=== PATIENT | female | born 1985 | race African-American/Black ===

== ENCOUNTER 2017-03-19 20:16 | Emergency (ER) | payer OTHER ==
[2017-03-19 20:40] VITALS: BP 152/97; PULSE 108; TEMP 101.4; BMI 33.5
[2017-03-19] MEDS ORDERED: IBUPROFEN 600 MG TABLET (FP) PO ONE ×2 (21:15→21:39)
--- NOTE | 2017-03-19 22:54 | PDOC ---
History of Present Illness - History of Present Illness Initial Comments: 03/19/17 22:05 CHIEF COMPLAINT: flu symptoms HISTORY OF PRESENT ILLNESS: 31 yo F presents to [facility] with fever, cough, runny nose, body aches, and headache x 3 days. Patient reports feeling fatigued and that "my eyes have felt heavy for the last 3 days." Patient reports nausea but denies any vomiting or diarrhea. She states she has had decreased appetite "but I'm drinking lots of water" and her urination has been normal. PAST MEDICAL HISTORY: Denies past medical history FAMILY HISTORY: Denies SOCIAL HISTORY: Denies tobacco, alcohol, illicit drug use. SURGICAL HISTORY: Denies ALLERGIES: No known drug allergies REVIEW OF SYSTEMS General/Constitutional: Fever, chills, fatigue, weakness. HEENT: Sore throat, runny nose, congestion. Denies change in vision. Denies ear pain or discharge Cardiovascular: Chest pain. Respiratory: Cough. Denies wheezing, or hemoptysis. Gastrointestinal: Nausea. Denies vomiting, diarrhea or constipation. Denies rectal bleeding. Genitourinary: Denies dysuria, frequency, or change in urination. Musculoskeletal: Body aches. Skin and breasts: Denies rash or easy bruising. Neurologic: Headache, dizziness. Vertigo, loss of consciousness, or loss of sensation. PHYSICAL EXAM General Appearance: Uncomfortable-appearing, diaphoretic. HEENT: EOMI, PERRLA, normal ENT inspection, normal voice, TMs normal, pharynx normal. No conjunctival pallor. No photophobia, scleral icterus. Neck: Supple. Trachea midline. No tenderness, rigidity, carotid bruit, stridor , lymphadenopathy, or thyromegaly. Respiratory/Chest: Lungs CTAB. Cardiovascular: RRR. S1, S2. Gastrointestinal/Abdominal: Normal bowel sounds. Abdomen soft, non-distended. No tenderness or rebound tenderness. No organomegaly, pulsatile mass, guarding , hernia, hepatomegaly, splenomegaly. Musculoskeletal/Extremities: Normal inspection. FROM of all extremities, normal capillary refill. Pelvis Stable. No CVA tenderness. No tenderness to extremities, pedal edema, swelling, erythema or deformity. Integumentary: Appropriate color, dry, warm. No cyanosis, erythema, jaundice or rash Neurologic: team lead II-XII intact. Fully oriented, alert. Appropriate mood/affect. Motor strength 5/5. No appreciable EOM palsy, facial droop or sensory deficit. <Dafne Berman - Last Filed: 03/19/17 22:05> <Cassandra Rosenberg - Last Filed: 03/20/17 16:41> - General Chief Complaint: Cold Symptoms Stated Complaint: FEVER Time Seen by Provider: 03/19/17 21:15 Past History - Past Medical History HTN: Yes (pre eclampsia) - Immunization History Immunization Up to Date: Yes - Suicide/Smoking/Psychosocial Hx Smoking Status: No Smoking History: Never smoked Number of Cigarettes Smoked Daily: 0 Cigars Per Day: 0 Hx Alcohol Use: No <Dafne Berman - Last Filed: 03/19/17 22:05> <Cassandra Rosenberg - Last Filed: 03/20/17 16:41> - Past Medical History Allergies/Adverse Reactions: Allergies Allergy/AdvReac Type Severity Reaction Status Date / Time No Known Allergies Allergy Verified 03/19/17 20:40 Home Medications: Ambulatory Orders Metformin HCl [Glucophage] 1,000 mg PO BID 10/04/12 Labetalol HCl [Normodyne -] 200 mg PO DAILY 08/03/13 Acetaminophen [Tylenol Extra Strength] 500 mg PO QID PRN #30 tablet 08/04/13 Ibuprofen [Motrin -] 800 mg PO TID #12 tablet 08/04/13 *Physical Exam - Vital Signs Last Vital Signs Temp Pulse Resp BP Pulse Ox 101.4 F H 108 H 20 152/97 99 03/19/17 20:37 03/19/17 20:37 03/19/17 20:37 03/19/17 20:37 03/19/17 20:37 <Dafne Berman - Last Filed: 03/19/17 22:05> - Vital Signs Last Vital Signs Temp Pulse Resp BP Pulse Ox 101.4 F H 108 H 20 152/97 99 03/19/17 20:37 03/19/17 20:37 03/19/17 20:37 03/19/17 20:37 03/19/17 20:37 <Cassandra Rosenberg - Last Filed: 03/20/17 16:41> ED Treatment Course - Medications Given in the ED: ED Medications Discontinued Medications Generic Name Dose Route Start Last Admin Trade Name Freq PRN Reason Stop Dose Admin Ibuprofen 600 mg 03/19/17 21:15 03/19/17 21:40 Motrin - PO 03/19/17 21:16 600 mg ONCE ONE Administration <Dafne Berman - Last Filed: 03/19/17 22:05> - LABORATORY CBC & Chemistry Diagram: 03/19/17 23:33 03/19/17 23:33 - ADDITIONAL ORDERS Additional order review: Laboratory Results 03/19/17 03/19/17 23:42 23:33 Sodium 135 L Potassium 3.4 L Chloride 100 Carbon Dioxide 25 Anion Gap 10 BUN 11 Creatinine 0.7 Creat Clearance w eGFR > 60 Random Glucose 254 H Calcium 9.0 Total Bilirubin 0.6 D AST 30 ALT 47 Alkaline Phosphatase 84 Total Protein 7.7 Albumin 3.9 Serum , Qual Negative 03/19/17 23:30 Group A Strep Rapid Antigen - Final Throat 03/19/17 10:03 Influenza Types A,B Antigen (RONI) - Final Nasopharyngeal Swab - Final 03/19/17 23:33 RBC 5.10 MCV 77.7 L MCHC 34.7 RDW 13.7 D MPV 8.6 Neutrophils % 43.2 Lymphocytes % 45.9 H Monocytes % 9.9 Eosinophils % 0.1 D Basophils % 0.9 - Medications Given in the ED: ED Medications Discontinued Medications Generic Name Dose Route Start Last Admin Trade Name Agus PRN Reason Stop Dose Admin Ibuprofen 600 mg 03/19/17 21:15 03/19/17 21:40 Motrin - PO 03/19/17 21:16 600 mg ONCE ONE Administration Sodium Chloride 1,000 ml 03/19/17 22:57 03/19/17 23:50 Normal Saline - IV 03/19/17 22:58 1,000 ml ONCE ONE Administration <Cassandra Rosenberg - Last Filed: 03/20/17 16:41> Medical Decision Making - Medical Decision Making 03/19/17 22:54 31 yo F presents to [facility] with fever, cough, runny nose, body aches, and headache x 3 days. -flu swab Flu negative. Patient is agitated that she "did not get a blood test for anything, and I feel terrible." Discussed with patient extensively that viruses can cause all of her symptoms and that she can be treated symptomatically on an outpatient basis. Patient persistently requests blood tests "to make sure everything is ok " and now is complaining that she has chest pain. -EKG, CXR -CBC, CMP -IVF Patient will be transferred to main ED for lab f/u. <Dafne Berman - Last Filed: 03/19/17 22:05> *DC/Admit/Observation/Transfer <Dafne Berman - Last Filed: 03/19/17 22:05> <ChetCassandraethan Loco - Last Filed: 03/20/17 16:41> Diagnosis at time of Disposition: Fever, Sore throat - Discharge Dispostion Disposition: HOME Condition at time of disposition: Stable - Referrals Referrals: Davi Wilson MD [Primary Care Provider] - - Patient Instructions Printed Discharge Instructions: DI for Strep Throat, DI for Viral Upper Respiratory Infection -- Adult, DI for Fever (Symptom) -- Adult - Post Discharge Activity Forms/Work/School Notes: Back to Work
[2017-03-19] MEDS ORDERED: SODIUM CHLORIDE 0.9% 1000 ML INFUS.BAG IV ONE (22:57)
[2017-03-19 23:50] LABS: BASO % 0.9 % (0-2.0); EOS % 0.1 % (0-4.5); HEMATOCRIT 39.6 % (32.4-45.2); HEMOGLOBIN 13.7 GM/dL (10.7-15.3); LYMPH % 45.9 % (8-40); MCH 26.9 pg (25.7-33.7); MCHC 34.7 g/dl (32.0-36.0); MEAN CELL VOLUME 77.7 fl (80-96); MEAN PLT VOLUME 8.6 fl (7.5-11.1); MONO % 9.9 % (3.8-10.2); NEUT % 43.2 % (42.8-82.8); PLATELET COUNT 250 K/MM3 (134-434); RDW 13.7 % (11.6-15.6); WHITE BLOOD COUNT 3.9 K/mm3 (4.0-10.0)
[2017-03-20 01:34] LABS: ALBUMIN 3.9 g/dl (3.4-5.0); ALK PHOS 84 U/L (45-117); ANION GAP 10 (8-16); BILIRUBIN,TOTAL 0.6 mg/dL (0.2-1.0); BLOOD UREA NITROGEN 11 mg/dL (7-18); CHLORIDE 100 mmol/L (98-107); CO2 25 mmol/L (21-32); CREATININE 0.7 mg/dL (0.55-1.02); GLUCOSE,RANDOM 254 mg/dL (74-106); POTASSIUM 3.4 mmol/L (3.5-5.1); SGOT/AST 30 U/L (15-37); SGPT/ALT 47 U/L (12-78); SODIUM 135 mmol/L (136-145); TOT PROT 7.7 g/dl (6.4-8.2)
--- NOTE | 2017-03-20 02:03 | PDOC ---
*Physical Exam - Vital Signs Last Vital Signs Temp Pulse Resp BP Pulse Ox 101.4 F H 108 H 20 152/97 99 03/19/17 20:37 03/19/17 20:37 03/19/17 20:37 03/19/17 20:37 03/19/17 20:37 ED Treatment Course - LABORATORY CBC & Chemistry Diagram: 03/19/17 23:33 03/19/17 23:33 - ADDITIONAL ORDERS Additional order review: Laboratory Results 03/19/17 03/19/17 23:42 23:33 Sodium 135 L Potassium 3.4 L Chloride 100 Carbon Dioxide 25 Anion Gap 10 BUN 11 Creatinine 0.7 Creat Clearance w eGFR > 60 Random Glucose 254 H Calcium 9.0 Total Bilirubin 0.6 D AST 30 ALT 47 Alkaline Phosphatase 84 Total Protein 7.7 Albumin 3.9 Serum , Qual Negative 03/19/17 23:30 Group A Strep Rapid Antigen - Final Throat 03/19/17 10:03 Influenza Types A,B Antigen (RONI) - Final Nasopharyngeal Swab - Final 03/19/17 23:33 RBC 5.10 MCV 77.7 L MCHC 34.7 RDW 13.7 D MPV 8.6 Neutrophils % 43.2 Lymphocytes % 45.9 H Monocytes % 9.9 Eosinophils % 0.1 D Basophils % 0.9 - Medications Given in the ED: ED Medications Discontinued Medications Generic Name Dose Route Start Last Admin Trade Name Freq PRN Reason Stop Dose Admin Ibuprofen 600 mg 03/19/17 21:15 03/19/17 21:40 Motrin - PO 03/19/17 21:16 600 mg ONCE ONE Administration Sodium Chloride 1,000 ml 03/19/17 22:57 03/19/17 23:50 Normal Saline - IV 03/19/17 22:58 1,000 ml ONCE ONE Administration Medical Decision Making - Medical Decision Making 03/20/17 02:05 31-year-old female who has had sore throat, fever and chills for several days, was seen in fast track and had a negative flu swab. However, she felt that she should have bloodwork done because she felt very badly and fell off for workup had not been done. CBC shows no elevation in white count. Chemistries do show an elevated glucose, but she is a diabetic. Throat culture was negative for strep pharyngitis. Chest x-ray did not show any infiltrates IMP fever,cough,sore throat URI *DC/Admit/Observation/Transfer Diagnosis at time of Disposition: Sore throat Fever Qualifiers: Fever type: unspecified Qualified Code(s): R50.9 - Fever, unspecified - Discharge Dispostion Disposition: HOME Condition at time of disposition: Stable - Referrals Referrals: Davi Wilson MD [Primary Care Provider] - - Patient Instructions Printed Discharge Instructions: DI for Strep Throat, DI for Viral Upper Respiratory Infection -- Adult, DI for Fever (Symptom) -- Adult - Post Discharge Activity
--- NOTE | 2017-03-20 12:43 | EKG ---
Test Reason : Blood Pressure : / mmHG Vent. Rate : 089 BPM Atrial Rate : 089 BPM P-R Int : 186 ms QRS Dur : 094 ms QT Int : 396 ms P-R-T Axes : 042 041 035 degrees QTc Int : 481 ms NORMAL SINUS RHYTHM NONSPECIFIC T WAVE ABNORMALITY ABNORMAL ECG NO PREVIOUS ECGS AVAILABLE Confirmed by ASAD CUNHA MD ([id number]) on 03/20/2017 12:43:01 PM Referred By: Confirmed By:ASAD CUNHA MD
== END 2017-03-20 02:09 | disposition home or self-care (01) ==
LOC: JERFT 20:16 → JER 20:16
DX: J02.9 Acute pharyngitis, unspecified (principal)
CPT/HCPCS: 36415; 71046-TC-FY; 80053; 84703; 85025; 87070; 87077; 87430; 87804; 93005; 93010; 99281-25

== ENCOUNTER 2018-03-31 18:13 | Observation (INO) | payer OTHER ==
[2018-03-31] MEDS ORDERED: ACETAMINOPHEN 1000 MG/100 ML VIAL (NON FORMULARY) IVPB ONE (19:19)
[2018-03-31] MEDS ORDERED: ONDANSETRON 4 MG/2 ML VIAL IVPUSH ONE (19:19)
[2018-03-31] MEDS ORDERED: SODIUM CHLORIDE 1,000 ML IV STA (19:19)
[2018-03-31] MEDS ORDERED: ONDANSETRON 4 MG/2 ML VIAL ONE (19:54)
[2018-03-31] MEDS ORDERED: ACETAMINOPHEN INJECTION 100 ML IVPB ONE (19:54)
--- NOTE | 2018-03-31 20:19 | PDOC ---
History of Present Illness <Ashley Matthews - Last Filed: 03/31/18 22:39> - General History Source: Patient Exam Limitations: No Limitations - History of Present Illness Initial Comments: 03/31/18 20:09 Patient is a 32F with history of DM and HTN here today complaining of vomiting and generalized weakness that started yesterday. Endorses an associated substernal chest pain described as a pressure with associated shortness of breath. Denies fevers, chills. Denies leg swelling, history of blood clots, recent travel. Patient has control device in L arm. Denies dysuria, abdominal pain. Endorses that her kids have similar illness, but no diffuse weakness. Denies syncope or LOC. <Chet Rick - Last Filed: 03/31/18 22:58> - General Chief Complaint: Nausea/Vomiting Stated Complaint: CHEST PAIN Time Seen by Provider: 03/31/18 19:12 Past History <Ashley Matthews - Last Filed: 03/31/18 22:39> - Past Medical History COPD: No Diabetes: Yes HTN: Yes (pre eclampsia) - Immunization History Immunization Up to Date: Yes - Suicide/Smoking/Psychosocial Hx Smoking Status: No Smoking History: Never smoked Number of Cigarettes Smoked Daily: 0 Cigars Per Day: 0 Hx Alcohol Use: No <Chet Rick - Last Filed: 03/31/18 22:58> - Past Medical History Allergies/Adverse Reactions: Allergies Allergy/AdvReac Type Severity Reaction Status Date / Time No Known Allergies Allergy Verified 03/31/18 18:25 Home Medications: Ambulatory Orders metFORMIN HCL [Glucophage] 1,000 mg PO BID 10/04/12 Labetalol HCl [Normodyne -] 200 mg PO DAILY 08/03/13 Acetaminophen [Tylenol Extra Strength] 500 mg PO QID PRN #30 tablet 08/04/13 Ibuprofen [Motrin -] 800 mg PO TID #12 tablet 08/04/13 Review of Systems - Review of Systems Comments:: 03/31/18 20:19 GENERAL/CONSTITUTIONAL: No fever or chills. No weakness. HEAD, EYES, EARS, NOSE AND THROAT: No change in vision. No sore throat. CARDIOVASCULAR: +chest pain +shortness of breath RESPIRATORY: No cough, wheezing, or hemoptysis. GASTROINTESTINAL: +nausea, +vomiting, no diarrhea or constipation. GENITOURINARY: No dysuria, frequency, or change in urination. MUSCULOSKELETAL: No joint or muscle swelling or pain. No neck or back pain. SKIN: No rash NEUROLOGIC: No headache, vertigo, loss of consciousness, or change in strength/ sensation. ENDOCRINE: No increased thirst. No abnormal weight change HEMATOLOGIC/LYMPHATIC: No anemia, easy bleeding, or history of blood clots. ALLERGIC/IMMUNOLOGIC: No hives or skin allergy. <Chet Rick - Last Filed: 03/31/18 22:58> *Physical Exam - Vital Signs Last Vital Signs Temp Pulse Resp BP Pulse Ox 98.8 F 95 H 18 122/81 99 03/31/18 18:17 03/31/18 18:17 03/31/18 18:17 03/31/18 18:17 03/31/18 18:17 <Ashley Matthews - Last Filed: 03/31/18 22:39> - Vital Signs Last Vital Signs Temp Pulse Resp BP Pulse Ox 98.8 F 95 H 18 122/81 99 03/31/18 18:17 03/31/18 18:17 03/31/18 18:17 03/31/18 18:17 03/31/18 18:17 - Physical Exam Comments: 03/31/18 20:19 GENERAL: Awake, alert, and fully oriented, in no acute distress HEAD: No signs of trauma, normocephalic, atraumatic EYES: PERRLA, EOMI, sclera anicteric, conjunctiva clear ENT: Auricles normal inspection, hearing grossly normal, nares patent, oropharynx clear without exudates. Moist mucosa NECK: Normal ROM, supple, no lymphadenopathy, JVD, or masses LUNGS: No distress, speaks full sentences, clear to auscultation bilaterally HEART: Regular rate and rhythm, normal S1 and S2, no murmurs, rubs or gallops, peripheral pulses normal and equal bilaterally. ABDOMEN: Soft, nontender, normoactive bowel sounds. No guarding, no rebound. No masses EXTREMITIES: Normal inspection, Normal range of motion, no edema. No clubbing or cyanosis. NEUROLOGICAL: Cranial nerves II through XII grossly intact. Normal speech, normal gait, no focal sensorimotor deficits SKIN: Warm, Dry, normal turgor, no rashes or lesions noted. <Chet Rick - Last Filed: 03/31/18 22:58> Moderate Sedation - Procedure Monitoring Vital Signs: Procedure Monitoring Vital Signs Temperature 98.8 F 03/31/18 18:17 Pulse Rate 95 H 03/31/18 18:17 Respiratory Rate 18 03/31/18 18:17 Blood Pressure 122/81 03/31/18 18:17 O2 Sat by Pulse Oximetry (%) 99 03/31/18 18:17 <Ashley Matthews - Last Filed: 03/31/18 22:39> - Procedure Monitoring Vital Signs: Procedure Monitoring Vital Signs Temperature 98.8 F 03/31/18 18:17 Pulse Rate 95 H 03/31/18 18:17 Respiratory Rate 18 03/31/18 18:17 Blood Pressure 122/81 03/31/18 18:17 O2 Sat by Pulse Oximetry (%) 99 03/31/18 18:17 <Chte Rick - Last Filed: 03/31/18 22:58> ED Treatment Course - LABORATORY CBC & Chemistry Diagram: 03/31/18 20:17 03/31/18 20:17 - ADDITIONAL ORDERS Additional order review: Laboratory Results 03/31/18 03/31/18 03/31/18 22:36 21:30 20:17 Sodium 141 Potassium 3.7 Chloride 107 Carbon Dioxide 25 Anion Gap 8 BUN 9 Creatinine 0.7 Creat Clearance w eGFR > 60 POC Glucometer 106 Random Glucose 105 Calcium 8.5 Total Bilirubin 0.4 AST 13 L ALT 26 Alkaline Phosphatase 60 Creatine Kinase 82 Troponin I < 0.02 Total Protein 7.3 Albumin 3.8 Lipase 505 H Urine Color Ltyellow Urine Appearance Clear Urine pH 5.0 Ur Specific [place] 1.014 Urine Protein Negative Urine Glucose (UA) Negative Urine Ketones Negative Urine Blood Negative Urine Nitrite Negative Urine Bilirubin Negative Urine Urobilinogen Negative Ur Leukocyte Esterase Negative Urine HCG, Qual Negative 03/31/18 03/31/18 22:36 20:17 RBC 4.67 MCV 79.6 L MCHC 36.0 RDW 13.5 MPV 8.2 Neutrophils % 39.4 L Lymphocytes % 49.6 H Monocytes % 8.1 Eosinophils % 2.0 D Basophils % 0.9 POC Glucometer 106 - RADIOLOGY Radiology Studies Ordered: Category Date Time Status ABDOMEN US -LIMITED [US] Stat Ultrasound 03/31/18 22:39 Ordered - Medications Given in the ED: ED Medications Discontinued Medications Generic Name Dose Route Start Last Admin Trade Name Agus PRN Reason Stop Dose Admin Acetaminophen 1,000 mg 03/31/18 19:19 03/31/18 20:19 Ofirmev Injection - IVPB 03/31/18 19:20 1,000 mg ONCE ONE Administration Sodium Chloride 1,000 mls @ 1,000 mls/hr 03/31/18 19:19 03/31/18 20:19 Normal Saline - IV 03/31/18 20:18 1,000 mls/hr ASDIR STA Administration Ondansetron HCl 4 mg 03/31/18 19:19 03/31/18 20:20 Zofran Injection IVPUSH 03/31/18 19:20 4 mg ONCE ONE Administration <Ashley Matthews - Last Filed: 03/31/18 22:39> - LABORATORY CBC & Chemistry Diagram: 03/31/18 20:17 03/31/18 20:17 <Chet Rick - Last Filed: 03/31/18 22:58> Medical Decision Making - Medical Decision Making 03/31/18 20:19 Patient is 32F here today with vomiting, chest pain, shortness of breath and weakness. Vitals normal and stable. Believe patient is likely dehydrated 2/2 uncontrolled DM (patient is not taking medications, not seeing PCP) and viral illness. DDx also includes, but is not limited to: ACS, arrhythmia, pneumonia. Will treat with fluids, tylenol, zofran. Will evaluate with cardiac labs, ekg, cxr. EKG shows normal sinus rhythm with normal rate. No st elevations/depressions. Normal axis. Normal intervals. No significant t wave abnormalities. 03/31/18 22:58 CBC normal. CMP reassuring. Lipase mildly elevated. US ordered. <Chet Rick - Last Filed: 03/31/18 22:58> *DC/Admit/Observation/Transfer - Discharge Dispostion Decision to Admit order: Yes <Ashley Matthews - Last Filed: 03/31/18 22:39> <Chet Rick - Last Filed: 03/31/18 22:58> Diagnosis at time of Disposition: Pancreatitis - Discharge Dispostion Condition at time of disposition: Guarded - Referrals Referrals: Davi Wilson MD [Primary Care Provider] - - Patient Instructions - Post Discharge Activity
[2018-03-31 20:24] LABS: BASO % 0.9 % (0-2.0); HEMATOCRIT 37.2 % (32.4-45.2); HEMOGLOBIN 13.4 GM/dL (10.7-15.3); LYMPH % 49.6 % (8-40); MCH 28.7 pg (25.7-33.7); MEAN CELL VOLUME 79.6 fl (80-96); MEAN PLT VOLUME 8.2 fl (7.5-11.1); MONO % 8.1 % (3.8-10.2); NEUT % 39.4 % (42.8-82.8); PLATELET COUNT 270 K/MM3 (134-434); RBC 4.67 M/mm3 (3.60-5.2); RDW 13.5 % (11.6-15.6); WHITE BLOOD COUNT 4.9 K/mm3 (4.0-10.0)
[2018-03-31 21:34] LABS: ALBUMIN 3.8 g/dl (3.4-5.0); ALK PHOS 60 U/L (45-117); ANION GAP 8 MMOL/L (8-16); BILIRUBIN,TOTAL 0.4 mg/dL (0.2-1); BLOOD UREA NITROGEN 9 mg/dL (7-18); CALCIUM 8.5 mg/dL (8.5-10.1); CHLORIDE 107 mmol/L (98-107); CO2 25 mmol/L (21-32); CREATININE 0.7 mg/dL (0.55-1.3); GLUCOSE,RANDOM 105 mg/dL (74-106); LIPASE 505 U/L (73-393); POTASSIUM 3.7 mmol/L (3.5-5.1); SGOT/AST 13 U/L (15-37); SGPT/ALT 26 U/L (13-61); SODIUM 141 mmol/L (136-145); TOT PROT 7.3 g/dl (6.4-8.2)
[2018-03-31 21:41] LABS: HCG,QUALITATIVE URINE Negative
[2018-03-31 21:44] LABS: URINE APPEARANCE CLEAR; URINE BILIRUBIN NEGATIVE (<2.0 mg/dL); URINE COLOR LTYELLOW; URINE GLUCOSE (UA) NEGATIVE (NEGATIVE); URINE KETONE NEGATIVE (NEGATIVE); URINE LEUK ESTERASE NEGATIVE (NEGATIVE); URINE NITRITE NEGATIVE (NEGATIVE); URINE PROTEIN NEGATIVE (NEGATIVE); URINE UROBILINOGEN NEGATIVE mg/dL (0.2-1.0)
[2018-03-31] MEDS ORDERED: ONDANSETRON 4 MG/2 ML VIAL IVPUSH PRN (23:22)
--- NOTE | 2018-03-31 23:32 | HP ---
CHIEF COMPLAINT: nausea/vomiting PCP: Steve HISTORY OF PRESENT ILLNESS: Patient is a 32 yo F w/ PMHx DM, HTN, pre-eclampsia, p/w nausea, numerous episodes of "very yellow" vomiting, and diarrhea a/w generalized weakness, substernal CP, and SOB since yesterday. No f/c, no other acute complaints. States that her children have similar syndrome without component of weakness. Hemodynamically stable on presentation. Labs significant for lipase 505. Urine hCG negative, LMP 1 week ago. Treated in ED w/ NS bolus, Jemal Lorenzo. ER course was notable for: (1) Lipase 505 (2) troponin negative, EKG NSR (3) no leukocytosis Recent Travel: PAST MEDICAL HISTORY: As per HPI PAST SURGICAL HISTORY: Social History: Smoking: Alcohol: Drugs: Family History: Allergies No Known Allergies Allergy (Verified 03/31/18 18:25) HOME MEDICATIONS: Home Medications Medication Instructions Recorded metFORMIN HCL [Glucophage] 1,000 mg PO BID 10/04/12 Labetalol HCl [Normodyne -] 200 mg PO DAILY 08/03/13 Acetaminophen [Tylenol Extra 500 mg PO QID PRN #30 tablet 08/04/13 Strength] Ibuprofen [Motrin -] 800 mg PO TID #12 tablet 08/04/13 REVIEW OF SYSTEMS As per HPI PHYSICAL EXAMINATION Vital Signs - 24 hr 03/31/18 18:17 Temperature 98.8 F Pulse Rate 95 H Respiratory 18 Rate Blood Pressure 122/81 O2 Sat by Pulse 99 Oximetry (%) GENERAL: A&Ox3, NAD HEENT: NC/AT, PERRLA, EOMI, MMM NECK: Normal range of motion, supple without lymphadenopathy, JVD, or masses. LUNGS: Breath sounds equal, clear to auscultation bilaterally. No wheezes, and no crackles. No accessory muscle use. HEART: Regular rate and rhythm, normal S1 and S2 without murmur, rub or gallop. ABDOMEN: +bs, soft, obese, mild epigastric tenderness MUSCULOSKELETAL: Normal range of motion at all joints. No bony deformities or tenderness. No CVA tenderness. UPPER EXTREMITIES: 2+ pulses, warm, well-perfused. No cyanosis. No clubbing. No peripheral edema. LOWER EXTREMITIES: 2+ pulses, warm, well-perfused. No calf tenderness. No peripheral edema. NEUROLOGICAL: pr specialist, motor, sensory systems w/o focal deficit PSYCHIATRIC: Cooperative. Good eye contact. Appropriate mood and affect. SKIN: Warm, dry, normal turgor, no rashes or lesions noted, normal capillary refill. Laboratory Results - last 24 hr 03/31/18 03/31/18 03/31/18 20:17 20:17 21:30 WBC 4.9 RBC 4.67 Hgb 13.4 Hct 37.2 MCV 79.6 L MCH 28.7 MCHC 36.0 RDW 13.5 Plt Count 270 MPV 8.2 Absolute Neuts (auto) 1.9 Neutrophils % 39.4 L Lymphocytes % 49.6 H Monocytes % 8.1 Eosinophils % 2.0 D Basophils % 0.9 Nucleated RBC % 0 Sodium 141 Potassium 3.7 Chloride 107 Carbon Dioxide 25 Anion Gap 8 BUN 9 Creatinine 0.7 Creat Clearance w eGFR > 60 POC Glucometer Random Glucose 105 Calcium 8.5 Total Bilirubin 0.4 AST 13 L ALT 26 Alkaline Phosphatase 60 Creatine Kinase 82 Troponin I < 0.02 Total Protein 7.3 Albumin 3.8 Lipase 505 H Urine Color Ltyellow Urine Appearance Clear Urine pH 5.0 Ur Specific [place] 1.014 Urine Protein Negative Urine Glucose (UA) Negative Urine Ketones Negative Urine Blood Negative Urine Nitrite Negative Urine Bilirubin Negative Urine Urobilinogen Negative Ur Leukocyte Esterase Negative Urine HCG, Qual Negative 03/31/18 22:36 WBC RBC Hgb Hct MCV MCH MCHC RDW Plt Count MPV Absolute Neuts (auto) Neutrophils % Lymphocytes % Monocytes % Eosinophils % Basophils % Nucleated RBC % Sodium Potassium Chloride Carbon Dioxide Anion Gap BUN Creatinine Creat Clearance w eGFR POC Glucometer 106 Random Glucose Calcium Total Bilirubin AST ALT Alkaline Phosphatase Creatine Kinase Troponin I Total Protein Albumin Lipase Urine Color Urine Appearance Urine pH Ur Specific [place] Urine Protein Urine Glucose (UA) Urine Ketones Urine Blood Urine Nitrite Urine Bilirubin Urine Urobilinogen Ur Leukocyte Esterase Urine HCG, Qual ASSESSMENT/PLAN: 32 y/o F w/ PMHx DM, HTN, pre-eclampsia, p/w 1 day n/v, generalized weakness, CP , SOB. Cardiac w/u negative. Labs notable for isolated lipase elevation less than 3x upper limit of normal. Admitted to obs for bowel rest and r/o pancreatitis #GI -mildly elevated lipase, mild epigastric tenderness -contrast CT a/p -NPO at this time -Zofran PRN -Zantac -LR @ 100 #cardiac -ED w/u negative #FEN -LR @ 100 -monitor and correct electrolyes -NPO at this time #PPx -DVT: SCDs -GI: Valeriaac #code -full #dispo -med/surg obs Visit type - Emergency Visit Emergency Visit: Yes ED Registration Date: 03/31/18 Care time: The patient presented to the Emergency Department on the above date and was hospitalized for further evaluation of their emergent condition. - New Patient This patient is new to me today: Yes Date on this admission: 03/31/18 - Critical Care Critical Care patient: No
--- NOTE | 2018-04-01 00:04 | PN ---
Teaching Attending Note Name of Resident: Tomas Muir ATTENDING PHYSICIAN STATEMENT I saw and evaluated the patient. I reviewed the resident's note and discussed the case with the resident. I agree with the resident's findings and plan as documented. SUBJECTIVE: Patient is a 32 year old woman with history of NIDDM (not taking medications now ?) and HTN here today complaining of vomiting, diarrhea and generalized weakness that started yesterday. Also has associated substernal chest pain described as a pressure with associated shortness of breath. Denies fevers, chills. Denies leg swelling, history of blood clots, recent travel. Patient has control device in her left arm. Denies ingesting any street food or stale food. No prior diagnosis of ACS and no family history of premature CAD. Denies dysuria, abdominal pain. Says that some of her kids have a similar illness, but no diffuse weakness. Denies syncope or LOC. Her LMP was last week. OBJECTIVE: Alert Vital Signs Period Temp Pulse Resp BP Sys/Doss Pulse Ox Last 24 Hr 98.8 F 95 18 122/81 99 HEENT: No Jaundice, eye redness or discharge, PERRLA, EOMI. Normocephalic, atraumatic. External ears are normal and hearing is grossly intact. No nasal discharge. Neck: Supple, nontender. No palpable adenopathy or thyromegaly. No JVD Chest: Good effort. Clear to auscultation and percussion. Heart: Regular. No S3, rub or murmur Abdomen: Not distended, soft, epigastric tenderness and no HSM. No rebound or guarding. Normoactive bowel sounds. Ext: Peripheral pulses intact. No leg edema. Skin: Warm and dry. No petechiae, rash or ecchymosis. Neuro: Alert. Oriented x3. CN 2-12 grossly intact. Sensation grossly intact in all four extremities and DTR are symmetric. Current Medications Generic Name Dose Route Start Last Admin Trade Name Freq PRN Reason Stop Dose Admin Lactated Ringer's 1,000 mls @ 100 mls/hr 03/31/18 23:30 Lactated Ringers Solution IV ASDIR KEVIN Insulin Aspart 1 vial 04/01/18 07:00 Novolog Vial Sliding Scale - SQ ACHS [facility] Protocol Ondansetron HCl 4 mg 03/31/18 23:22 Zofran Injection IVPUSH Q6H PRN NAUSEA AND/OR VOMITING Ranitidine HCl 150 mg 04/01/18 10:00 Zantac - PO DAILY [facility] Home Medications Medication Instructions Recorded metFORMIN HCL [Glucophage] 1,000 mg PO BID 10/04/12 Labetalol HCl [Normodyne -] 200 mg PO DAILY 08/03/13 Acetaminophen [Tylenol Extra 500 mg PO QID PRN #30 tablet 08/04/13 Strength] Ibuprofen [Motrin -] 800 mg PO TID #12 tablet 08/04/13 Abnormal Lab Results 03/31/18 03/31/18 20:17 20:17 MCV 79.6 L Neutrophils % 39.4 L Lymphocytes % 49.6 H AST 13 L Lipase 505 H ASSESSMENT AND PLAN: 1. Chestpain and ?Gastroenteritis - Findings suggest viral gastroenteritis. Initial troponin is negative and EKG shows NSR with no significant ST-T wave changes. She has risk factors for CAD - will admit to Telemetry to rule out ACS , get ECHO and refer to outpatient cardiology. In view of elevated lipase, vomiting and diarrhea, will get a CT of abdomen and pelvis; continue IV NS, IV protonix and zofran. Trend lipase. 2. DM ?Diet controlled. Will clarify with her pharmacy whether she is on any diabetes drugs. For now, we will implement sliding scale insulin regimen. Provide comprehensive diabetes care with patient teaching and counseling about the importance of adherence to prescribed diabetes regimen, euglycemia, eye care and foot care. 3. Obesity - Will provide patient all the necessary assistance, counseling and positive reinforcement to facilitate weight loss. Consult outreach manager. 4. DVT prophylaxis - Lovenox 40 mg SQ q 24 hours. 5. Advance directives - Full code
--- NOTE | 2018-04-01 00:41 | PDOC ---
Attending Attestation - HPI HPI: 04/01/18 00:41 The patient is a 32 year old female, with a significant PMH of hypertension and diabetes, who presents to the emergency department with 1 day of vomiting (non bloody, non bilious) and generalized weakness. The patient also endorses a substernal chest pain, described as a pressure, with associated shortness of breath. The patient reports sick contacts at home with her children who are experiencing similar vomiting symptoms. The patient denies any recent leg swelling, history of blood clots, recent travel or surgery. The patient states she has a control device in the LUE. The patient denies palpitations, headache and dizziness. Denies fever, chills, diarrhea and constipation. Denies dysuria, frequency, urgency and hematuria. Allergies: NKA. - Physicial Exam PE: 04/01/18 00:42 GENERAL: Awake, alert, and fully oriented, in no acute distress HEAD: No signs of trauma EYES: PERRLA, EOMI, sclera anicteric, conjunctiva clear ENT: Auricles normal inspection, hearing grossly normal, nares patent, oropharynx clear without exudates. Moist mucosa NECK: Normal ROM, supple, no lymphadenopathy, JVD, or masses LUNGS: Breath sounds equal, clear to auscultation bilaterally. No wheezes, and no crackles HEART: Regular rate and rhythm, normal S1 and S2, no murmurs, rubs or gallops ABDOMEN: Soft, nontender, normoactive bowel sounds. No guarding, no rebound. No masses EXTREMITIES: Normal range of motion, no edema. No clubbing or cyanosis. No cords, erythema, or tenderness NEUROLOGICAL: Cranial nerves II through XII grossly intact. Normal speech, normal gait SKIN: Warm, Dry, normal turgor, no rashes or lesions noted. - Medical Decision Making 04/01/18 00:42 Documentation prepared by Malika Godinez, acting as medical office assistant for Ashley Matthews MD. <Malika Godinez - Last Filed: 04/01/18 00:42> - Resident Resident Name: Chet Rick - ED Attending Attestation I have performed the following: I have examined & evaluated the patient, The case was reviewed & discussed with the resident, I agree w/resident's findings & plan - Medical Decision Making 04/01/18 03:37 Pt has an elevated lipase; states that she has had epigastric pain x 1 week and she states that she has pain when she eats. She will require obs admission and GI consult <Ashley Matthews - Last Filed: 04/01/18 03:37>
[2018-04-01] MEDS: LACTATED RINGERS SOLUTION 1,000 ML IV SCH ×2 (01:44→07:06)
[2018-04-01] MEDS ORDERED: ONDANSETRON 4 MG/2 ML VIAL ONE (01:49)
[2018-04-01 04:28] VITALS: BMI 28.0
[2018-04-01] MEDS: INSULIN SLIDING SCALE (NOVOLOG) 1 VIAL SQ SCH ×2 (07:05→12:06)
[2018-04-01 08:39] LABS: ALBUMIN 3.1 g/dl (3.4-5.0); ALK PHOS 42 U/L (45-117); ANION GAP 6 MMOL/L (8-16); BILIRUBIN,TOTAL 0.4 mg/dL (0.2-1); BLOOD UREA NITROGEN 6 mg/dL (7-18); CALCIUM 7.8 mg/dL (8.5-10.1); CHLORIDE 109 mmol/L (98-107); CO2 24 mmol/L (21-32); CREATININE 0.6 mg/dL (0.55-1.3); GLUCOSE,RANDOM 113 mg/dL (74-106); PHOSPHOROUS 3.5 mg/dL (2.5-4.9); POTASSIUM 3.7 mmol/L (3.5-5.1); SGOT/AST 15 U/L (15-37); SGPT/ALT 26 U/L (13-61); SODIUM 139 mmol/L (136-145); TOT PROT 6.1 g/dl (6.4-8.2)
[2018-04-01 08:44] LABS: BASO % 0.4 % (0-2.0); EOS % 2.4 % (0-4.5); HEMATOCRIT 31.8 % (32.4-45.2); HEMOGLOBIN 11.5 GM/dL (10.7-15.3); MCH 28.8 pg (25.7-33.7); MCHC 36.2 g/dl (32.0-36.0); MEAN CELL VOLUME 79.6 fl (80-96); MEAN PLT VOLUME 8.4 fl (7.5-11.1); MONO % 8.7 % (3.8-10.2); NEUT % 29.5 % (42.8-82.8); PLATELET COUNT 237 K/MM3 (134-434); RDW 13.4 % (11.6-15.6); WHITE BLOOD COUNT 4.5 K/mm3 (4.0-10.0)
[2018-04-01] MEDS ORDERED: RANITIDINE HCL 150 MG TABLET (FP) PO SCH (10:00)
--- NOTE | 2018-04-01 10:44 | DS ---
Physical Exam: SUBJECTIVE: Patient seen and examined, no further nausea, vomiting, diarrhea, abdominal pain or chest pain. OBJECTIVE: Vital Signs Period Temp Pulse Resp BP Sys/Doss Pulse Ox Last 24 Hr 98.6 F-98.8 F 73-95 18-20 122-140/81-87 98-99 PHYSICAL EXAM GENERAL: The patient is awake, alert, and fully oriented, in no acute distress. HEAD: Normal with no signs of trauma. EYES: PERRL, extraocular movements intact, sclera anicteric, conjunctiva clear. ENT: Ears normal, nares patent, oropharynx clear without exudates, moist mucous membranes. NECK: Trachea midline, full range of motion, supple. LUNGS: Breath sounds equal, clear to auscultation bilaterally, no wheezes, no crackles, no accessory muscle use. HEART: Regular rate and rhythm, S1, S2 ABDOMEN: Soft, nontender, nondistended, normoactive bowel sounds, no guarding, no rebound, EXTREMITIES: 2+ pulses, warm, well-perfused, no edema. NEUROLOGICAL: Cranial nerves II through XII grossly intact. Normal speech, gait not observed. PSYCH: Normal mood, normal affect. SKIN: Warm, dry, normal turgor, no rashes or lesions noted. LABS Laboratory Results - last 24 hr 03/31/18 03/31/18 03/31/18 20:17 20:17 21:30 WBC 4.9 RBC 4.67 Hgb 13.4 Hct 37.2 MCV 79.6 L MCH 28.7 MCHC 36.0 RDW 13.5 Plt Count 270 MPV 8.2 Absolute Neuts (auto) 1.9 Neutrophils % 39.4 L Lymphocytes % 49.6 H Monocytes % 8.1 Eosinophils % 2.0 D Basophils % 0.9 Nucleated RBC % 0 Sodium 141 Potassium 3.7 Chloride 107 Carbon Dioxide 25 Anion Gap 8 BUN 9 Creatinine 0.7 Creat Clearance w eGFR > 60 POC Glucometer Random Glucose 105 Calcium 8.5 Phosphorus Magnesium Total Bilirubin 0.4 AST 13 L ALT 26 Alkaline Phosphatase 60 Creatine Kinase 82 Troponin I < 0.02 Total Protein 7.3 Albumin 3.8 Lipase 505 H Urine Color Ltyellow Urine Appearance Clear Urine pH 5.0 Ur Specific [place] 1.014 Urine Protein Negative Urine Glucose (UA) Negative Urine Ketones Negative Urine Blood Negative Urine Nitrite Negative Urine Bilirubin Negative Urine Urobilinogen Negative Ur Leukocyte Esterase Negative Urine HCG, Qual Negative Influenza A (Rapid) Influenza B (Rapid) 03/31/18 04/01/18 04/01/18 22:36 02:24 07:00 WBC 4.5 RBC 4.00 Hgb 11.5 Hct 31.8 L MCV 79.6 L MCH 28.8 MCHC 36.2 H RDW 13.4 Plt Count 237 MPV 8.4 Absolute Neuts (auto) 1.3 L Neutrophils % 29.5 L D Lymphocytes % 59.0 H Monocytes % 8.7 Eosinophils % 2.4 Basophils % 0.4 Nucleated RBC % 0 Sodium Potassium Chloride Carbon Dioxide Anion Gap BUN Creatinine Creat Clearance w eGFR POC Glucometer 106 Random Glucose Calcium Phosphorus Magnesium Total Bilirubin AST ALT Alkaline Phosphatase Creatine Kinase Troponin I Total Protein Albumin Lipase Urine Color Urine Appearance Urine pH Ur Specific [place] Urine Protein Urine Glucose (UA) Urine Ketones Urine Blood Urine Nitrite Urine Bilirubin Urine Urobilinogen Ur Leukocyte Esterase Urine HCG, Qual Influenza A (Rapid) Negative Influenza B (Rapid) Negative 04/01/18 04/01/18 07:00 07:04 WBC RBC Hgb Hct MCV MCH MCHC RDW Plt Count MPV Absolute Neuts (auto) Neutrophils % Lymphocytes % Monocytes % Eosinophils % Basophils % Nucleated RBC % Sodium 139 Potassium 3.7 Chloride 109 H Carbon Dioxide 24 Anion Gap 6 L BUN 6 L Creatinine 0.6 Creat Clearance w eGFR > 60 POC Glucometer 122 Random Glucose 113 H Calcium 7.8 L Phosphorus 3.5 Magnesium 2.0 Total Bilirubin 0.4 AST 15 ALT 26 Alkaline Phosphatase 42 L Creatine Kinase Troponin I Total Protein 6.1 L Albumin 3.1 L Lipase Urine Color Urine Appearance Urine pH Ur Specific [place] Urine Protein Urine Glucose (UA) Urine Ketones Urine Blood Urine Nitrite Urine Bilirubin Urine Urobilinogen Ur Leukocyte Esterase Urine HCG, Qual Influenza A (Rapid) Influenza B (Rapid) CT A/P and abdominal US prelim results reviewed HOSPITAL COURSE: Date of Admission:03/31/18 Date of Discharge: 04/01/18 Minutes to complete discharge: 35 Discharge Summary Reason For Visit: PANCREATITIS Current Active Problems Pancreatitis (Acute) Hospital Course: 32 yof with PMHX of NIDDM, HTN, pre-eclampsia, admitted with nausea, non bloody vomiting/diarrhea and sharp abdominal pain for 2 days. patient reported eating Grey food day prior. Also use of marihuana with a friend few days ago and reported sick contact, her kids with flu like symptoms. She had mild elevation of her lipase, she had a CT Abdomen/pelvis and abdominal Ultrasound prellim results are negative for any concerns. Her symptoms resolved, she was tolerating diet well with no concerns. She is advised to hold her metformin for 72 hours given recent contrast exposure. She will be discharged in stable condition. Condition: Stable - Instructions Diet, Activity, Other Instructions: MEDICATIONS: You received Dye with your CT scan study. DO NOT TAKE YOUR METFORMIN FOR 72 HOURS, THEN RESUME IF NO CONCERNS. Continue labetalol as before. DIET: as tolerated ACTIVITY: Avoid marihuana. FOLLOW UP; Follow up with your primary care physician in 3-4 days. You received dye with your CT scan study, so do not take metformin for 72 hours.You can resume the medication in 3-4 days if no concerns, after discussion with your doctor. In the interim you are advised to monitor your blood sugars before meals and maintan a diary and notify your doctor if persistently > 150 noted. If you notice any new belly pain, fevers, chills, vomiting/diarrhea, inability to eat or any new concerns, please call 911 or come to ED immediately. Referrals: Davi Wilson MD [Primary Care Provider] - Disposition: HOME - Home Medications Comprehensive Discharge Medication List: Ambulatory Orders Labetalol HCl [Normodyne -] 200 mg PO DAILY 08/03/13 This patient is new to me today: Yes Date on this admission: 04/01/18 Emergency Visit: Yes ED Registration Date: 03/31/18 Care time: The patient presented to the Emergency Department on the above date and was hospitalized for further evaluation of their emergent condition. Critical Care patient: No - Discharge Referral Referred to [facility] No
[2018-04-01 11:47] VITALS: BP 134/79; PULSE 74; TEMP 98.4
--- NOTE | 2018-04-01 12:52 | EKG ---
Test Reason : Blood Pressure : / mmHG Vent. Rate : 092 BPM Atrial Rate : 092 BPM P-R Int : 168 ms QRS Dur : 088 ms QT Int : 358 ms P-R-T Axes : 054 058 043 degrees QTc Int : 442 ms NORMAL SINUS RHYTHM Confirmed by FABIAN PERES MD ([id number]) on 04/01/2018 12:52:32 PM Referred By: Confirmed By:FABIAN PERES MD
== END 2018-04-01 13:51 | disposition home or self-care (01) ==
LOC: JER 18:13 → JERBED 22:40 → J8W 04-01 04:13
PROVIDERS: ADMIT Internal Medicine; ATTEND Hospitalist
PROC: 3E033NZ Introduction of Analgesics, Hypnotics, Sedatives into Peripheral Vein, Percutaneous Approach (ICD-10-PCS; principal; 2018-03-31)
PROC: 3E0337Z Introduction of Electrolytic and Water Balance Substance into Peripheral Vein, Percutaneous Approach (ICD-10-PCS; 2018-03-31)
PROC: 3E033GC Introduction of Other Therapeutic Substance into Peripheral Vein, Percutaneous Approach (ICD-10-PCS; 2018-03-31)
DX: K85.90 Acute pancreatitis without necrosis or infection, unspecified (principal); R74.8 Abnormal levels of other serum enzymes; R11.2 Nausea with vomiting, unspecified; R07.89 Other chest pain; E11.9 Type 2 diabetes mellitus without complications; I10 Essential (primary) hypertension; E66.9 Obesity, unspecified; Z68.28 Body mass index [BMI] 28.0-28.9, adult; Z79.84 Long term (current) use of oral hypoglycemic drugs
CPT/HCPCS: 36415; 71045-TC-FY; 74177-TC; 76705-TC; 80053; 81003; 82550; 82962; 83690; 83735; 84100; 84484; 84703; 85025; 87804; 93005; 93010; 99283-25; G0378; J0131; J7030

== ENCOUNTER 2018-12-19 19:21 | Emergency (ER) | payer OTHER ==
[2018-12-19] MEDS ORDERED: SODIUM CHLORIDE 1,000 ML IV STA (19:38)
--- NOTE | 2018-12-19 19:38 | PDOC ---
Rapid Medical Evaluation Chief Complaint: Chest Pain Time Seen by Provider: 12/19/18 19:23 Medical Evaluation: Allergies Allergy/AdvReac Type Severity Reaction Status Date / Time No Known Allergies Allergy Verified 03/31/18 18:25 12/19/18 19:36 CC:multiple c/o including "foot pain radiating to the heart," abdominal pain, lower back pain PE: No focal findings Orders: abd w/u Patient will proceed to ER for further evaluation. Discharge Disposition - Diagnosis Abdominal pain - Referrals - Patient Instructions - Post Discharge Activity
[2018-12-19 19:40] VITALS: TEMP 98.5; BMI 32.3
--- NOTE | 2018-12-19 20:58 | PDOC ---
History of Present Illness - General Chief Complaint: Chest Pain Stated Complaint: CHEST PAIN Time Seen by Provider: 12/19/18 19:23 - History of Present Illness Initial Comments: 12/19/18 23:50 33 year old woman with a history DM, HTN (not on medications) and prior pancreatitis who presents with 1 week of tingling in the R arm and leg, 1 week of epigastric pain, several days of low back pain and 2 days of intermittent mid chest pain that comes on and lasts for seconds. The patient denies any nausea, vomiting, diaphoresis, lightheadedness, dysuria, hematuria, constipation or diarrhea. She has no other complaints. PSHX: , breast reduction ROS GENERAL/CONSTITUTIONAL: No fever or chills. No weakness. CARDIOVASCULAR: No chest pain or shortness of breath RESPIRATORY: No cough, wheezing, or hemoptysis. GASTROINTESTINAL: No nausea, vomiting, diarrhea or constipation. GENITOURINARY: No dysuria, frequency, or change in urination. MUSCULOSKELETAL: No joint or muscle swelling or pain. No neck or back pain. SKIN: No rash NEUROLOGIC: No headache, vertigo, loss of consciousness, or change in strength/ sensation. PE GENERAL: Awake, alert, and fully oriented, in no acute distress HEAD: No signs of trauma, normocephalic, atraumatic EYES: PERRLA, EOMI, sclera anicteric, conjunctiva clear ENT: oropharynx clear without exudates. Moist mucosa NECK: Normal ROM, supple LUNGS: No distress, speaks full sentences, clear to auscultation bilaterally HEART: Regular rate and rhythm, normal S1 and S2, no murmurs, rubs or gallops, peripheral pulses normal and equal bilaterally. ABDOMEN: Soft, + diffuse abd tenderness worse epigastrically No guarding, no rebound. No masses EXTREMITIES : Normal inspection, Normal range of motion, no edema. No clubbing or cyanosis. NEUROLOGICAL: Cranial nerves II through XII grossly intact. Normal speech, normal gait, no focal sensorimotor deficits, no changes in sensation or strength SKIN: Warm, Dry, normal turgor, no rashes or lesions noted PELVIC: closed os, physiologic fluid, no cmt, no adenxal masses palpated MDM DDX including but not limited to: pancreatitis vs cholelithiasis r/o appendicitis r/o acs r/o infectious W/U: - cbc, cmp, ua,ucx, upreg, trop,ekg, cxr, ctap TX: - tylenol, pepcid, maalox, ivf ED Course: labs wnl, elevated glucose, given ivf EKG: normal sinus rhythm HR 87, no interval abnormalities, narrow QRS, ST and T wave segments and morphology normal. CXR: midline airway, appropriate vascular markings, no blunting of costophrenic angle, no cardiomegaly, as read by this headline writer CT AP: partial bladder calcification indicating possible chronic inflammation, otherwise unremarkable On reassessment, patient reports improvement of pain Will d/c with GI and PCP f/u Nancy Camacho, PGY2 Emergency Medicine Past History - Past Medical History Allergies/Adverse Reactions: Allergies Allergy/AdvReac Type Severity Reaction Status Date / Time No Known Allergies Allergy Verified 12/19/18 19:40 Home Medications: Ambulatory Orders Labetalol HCl [Normodyne -] 200 mg PO DAILY 08/03/13 COPD: No Diabetes: Yes HTN: Yes (pre eclampsia) - Immunization History Immunization Up to Date: Yes - Psycho Social/Smoking Cessation Hx Smoking Status: No Smoking History: Never smoked Have you smoked in the past 12 months: No Number of Cigarettes Smoked Daily: 0 Cigars Per Day: 0 Information on smoking cessation initiated: No Hx Alcohol Use: No Drug/Substance Use Hx: No *Physical Exam - Vital Signs Last Vital Signs Temp Pulse Resp BP Pulse Ox 98.5 F 93 H 17 145/82 100 12/19/18 19:37 12/19/18 19:37 12/19/18 19:37 12/19/18 19:37 12/19/18 19:37 ED Treatment Course - LABORATORY CBC & Chemistry Diagram: 12/19/18 21:50 12/19/18 21:50 Discharge - Discharge Information Problems reviewed: Yes Clinical Impression/Diagnosis: Abdominal discomfort Condition: Stable Disposition: HOME - Admission No - Follow up/Referral Referrals: Davi Wilson MD [Primary Care Provider] - Manolo Lizarraga DO [Staff Physician] - - Patient Discharge Instructions Patient Printed Discharge Instructions: DI for Abdominal Pain-Adult Additional Instructions: You were seen in the ER for abdominal pain You had a negative labwork, CT and Ultrasound You have a referral to GI and should follow up within 1 week if your symptoms persist Follow up with your Family Doctor within 1 week Return to the ED if you experience worsening abdominal pain, nausea, vomiting, fever or any other concerning symptoms. - Post Discharge Activity
--- NOTE | 2018-12-19 20:59 | PDOC ---
Attending Attestation - Resident Resident Name: Nancy Camacho - ED Attending Attestation I have performed the following: I have examined & evaluated the patient, The case was reviewed & discussed with the resident, I agree w/resident's findings & plan - HPI HPI: 12/19/18 23:22 agree with resident hpi - Physicial Exam PE: 12/19/18 23:22 agree with resident exam - Medical Decision Making 12/19/18 23:22 33-year-old female with diffuse abdominal pain as well as reproducible left- sided chest pain Troponin within normal limits, EKG shows a sinus rhythm with no ST segment elevation Plan for CT scan of the abdomen and pelvis IV fluids, Pepcid, IV Tylenol and reevaluation
[2018-12-19 22:19] VITALS: BP 125/88; PULSE 76
[2018-12-19 22:21] LABS: BASO % 0.9 % (0-2.0); EOS % 1.9 % (0-4.5); HEMATOCRIT 36.7 % (32.4-45.2); HEMOGLOBIN 12.7 GM/dL (10.7-15.3); LYMPH % 46.6 % (8-40); MCHC 34.7 g/dl (32.0-36.0); MEAN CELL VOLUME 80.6 fl (80-96); MEAN PLT VOLUME 8.8 fl (7.5-11.1); MONO % 7.8 % (3.8-10.2); NEUT % 42.8 % (42.8-82.8); PLATELET COUNT 310 K/MM3 (134-434); RBC 4.55 M/mm3 (3.60-5.2); RDW 13.9 % (11.6-15.6); WHITE BLOOD COUNT 7.3 K/mm3 (4.0-10.0)
[2018-12-19 22:46] LABS: ALBUMIN 3.8 g/dl (3.4-5.0); ALK PHOS 75 U/L (45-117); ANION GAP 7 MMOL/L (8-16); BILIRUBIN,TOTAL 0.5 mg/dL (0.2-1); CALCIUM 9.1 mg/dL (8.5-10.1); CHLORIDE 102 mmol/L (98-107); CO2 28 mmol/L (21-32); CREATININE 0.7 mg/dL (0.55-1.3); GLUCOSE,RANDOM 257 mg/dL (74-106); LIPASE 260 U/L (73-393); POTASSIUM 3.9 mmol/L (3.5-5.1); SGOT/AST 6 U/L (15-37); SGPT/ALT 18 U/L (13-61); SODIUM 137 mmol/L (136-145); TOT PROT 7.5 g/dl (6.4-8.2)
[2018-12-19] MEDS ORDERED: MAG HYDROX/AL HYDROX/SIMETH 30 ML UNIT-DOSE CUP PO ONE (23:24)
[2018-12-19] MEDS ORDERED: FAMOTIDINE 20 MG/50 ML IVPB 20 MG/50 ML MG IVPB ONE ×2 (23:24→23:44)
[2018-12-19] MEDS ORDERED: ACETAMINOPHEN 1000 MG/100 ML VIAL (NON FORMULARY) IVPB ONE (23:24)
[2018-12-19 23:38] LABS: URINE APPEARANCE CLEAR; URINE COLOR YELLOW; URINE GLUCOSE (UA) 500 mg/dl (NEGATIVE)
[2018-12-19 23:39] LABS: PH,URINE 5.5 (5.0-8.0); URINE BILIRUBIN NEGATIVE (NEGATIVE); URINE KETONE NEGATIVE (NEGATIVE); URINE LEUK ESTERASE NEGATIVE (NEGATIVE); URINE NITRITE NEGATIVE (NEGATIVE); URINE PROTEIN NEGATIVE (NEGATIVE); URINE UROBILINOGEN 0.2 mg/dL (0.2-1.0)
[2018-12-19] MEDS ORDERED: MAG HYDROX/AL HYDROX/SIMETH 30 ML UNIT-DOSE CUP ONE (23:44)
[2018-12-19] MEDS ORDERED: ACETAMINOPHEN INJECTION 100 ML IVPB ONE (23:44)
--- NOTE | 2018-12-21 14:05 | EKG ---
Test Reason : Blood Pressure : / mmHG Vent. Rate : 087 BPM Atrial Rate : 087 BPM P-R Int : 178 ms QRS Dur : 086 ms QT Int : 378 ms P-R-T Axes : 057 053 042 degrees QTc Int : 454 ms POOR DATA QUALITY, INTERPRETATION MAY BE ADVERSELY AFFECTED NORMAL SINUS RHYTHM NONSPECIFIC T WAVE ABNORMALITY WHEN COMPARED WITH ECG OF 31-MAR-2018 18:20, NO SIGNIFICANT CHANGE WAS FOUND Confirmed by FABIAN PERES MD ([id number]) on 12/21/2018 2:05:01 PM Referred By: Confirmed By:FABIAN PERES MD
== END 2018-12-20 02:08 | disposition home or self-care (01) ==
LOC: JER 19:21
DX: R10.9 Unspecified abdominal pain (principal); I10 Essential (primary) hypertension
CPT/HCPCS: 36415; 71045-TC-FY; 74177-TC; 76705-TC; 80053; 81003; 82550; 83690; 84484; 84703; 85025; 87086; 87389; 93005; 93010; 99285-25; J0131; J7030

== ENCOUNTER 2020-09-23 17:49 | Emergency (ER) | payer OTHER ==
[2020-09-23 18:00] VITALS: BMI 34.2
[2020-09-23] MEDS ORDERED: SODIUM CHLORIDE 1,000 ML IV STA (18:24)
[2020-09-23 19:30] LABS: BASO % 0.7 % (0-2.0); EOS % 1.4 % (0-4.5); HEMATOCRIT 40.5 % (32.4-45.2); LYMPH % 41.3 % (8-40); MCH 27.7 pg (25.7-33.7); MCHC 34.6 g/dl (32.0-36.0); MEAN PLT VOLUME 8.2 fl (7.5-11.1); NEUT % 49.6 % (42.8-82.8); PLATELET COUNT 335 10^3/uL (134-434); RBC 5.07 M/mm3 (3.60-5.2); RDW 13.6 % (11.6-15.6); WHITE BLOOD COUNT 5.4 K/mm3 (4.0-10.0)
[2020-09-23 19:54] LABS: CHLORIDE 107 mmol/L (98-107); SODIUM 138 mmol/L (136-145)
[2020-09-23 19:56] LABS: CALCIUM 9.3 mg/dL (8.5-10.1)
[2020-09-23 19:57] LABS: ANION GAP 9 MMOL/L (8-16); BLOOD UREA NITROGEN 11.2 mg/dL (7-18); CO2 22 mmol/L (21-32); GLUCOSE,RANDOM 249 mg/dL (74-106)
[2020-09-23 20:00] LABS: CREATININE 0.8 mg/dL (0.55-1.3); SGOT/AST 19 U/L (15-37); SGPT/ALT 38 U/L (13-61)
[2020-09-23 20:01] LABS: BILIRUBIN,TOTAL 0.7 mg/dL (0.2-1)
[2020-09-23 20:03] LABS: ALK PHOS 66 U/L (45-117)
[2020-09-23 20:15] VITALS: BP 121/79; PULSE 96; TEMP 98.3
== END 2020-09-23 21:00 | disposition home or self-care (01) ==
LOC: JER 17:49
PROC: 3E0337Z Introduction of Electrolytic and Water Balance Substance into Peripheral Vein, Percutaneous Approach (ICD-10-PCS; principal; 2020-09-23)
DX: R00.2 Palpitations (principal)
CPT/HCPCS: 36415; 71046-TC-FY; 80053; 82550; 84443; 84484; 85025; 85379; 93005; 93010; 99285-25; C9803; U0003; U0005

== ENCOUNTER 2020-10-13 19:37 | Emergency (ER) | payer OTHER ==
[2020-10-13 19:46] VITALS: BP 127/78; PULSE 62; TEMP 97; BMI 33.4
[2020-10-13] MEDS ORDERED: MAG HYDROX/AL HYDROX/SIMETH -MYLANTA- ORAL SUSPENSION PO ONE (21:13)
[2020-10-13] MEDS ORDERED: SODIUM CHLORIDE 1,000 ML IV STA (21:13)
[2020-10-13] MEDS ORDERED: FAMOTIDINE 20 MG/50 ML IVPB 20 MG/50 ML MG IVPB ONE ×2 (21:13→21:26)
[2020-10-13] MEDS ORDERED: MAG HYDROX/AL HYDROX/SIMETH 30 ML UNIT-DOSE CUP ONE (21:26)
[2020-10-13 21:32] LABS: BASO % 1.5 % (0-2.0); EOS % 1.6 % (0-4.5); HEMATOCRIT 35.1 % (32.4-45.2); HEMOGLOBIN 12.2 GM/dL (10.7-15.3); LYMPH % 44.7 % (8-40); MCH 27.7 pg (25.7-33.7); MCHC 34.8 g/dl (32.0-36.0); MEAN CELL VOLUME 79.6 fl (80-96); MEAN PLT VOLUME 8.5 fl (7.5-11.1); NEUT % 45.2 % (42.8-82.8); PLATELET COUNT 295 10^3/uL (134-434); RBC 4.41 M/mm3 (3.60-5.2); RDW 13.5 % (11.6-15.6); WHITE BLOOD COUNT 6.1 K/mm3 (4.0-10.0)
[2020-10-13 21:47] LABS: BLOOD UREA NITROGEN 11.4 mg/dL (7-18)
[2020-10-13 21:49] LABS: ALBUMIN 3.7 g/dl (3.4-5.0)
[2020-10-13 21:51] LABS: CREATININE 0.7 mg/dL (0.55-1.3)
[2020-10-13 21:52] LABS: BILIRUBIN,TOTAL 0.5 mg/dL (0.2-1); TOT PROT 7.2 g/dl (6.4-8.2)
== END 2020-10-13 22:44 | disposition home or self-care (01) ==
LOC: JER 19:37
PROC: 3E033GC Introduction of Other Therapeutic Substance into Peripheral Vein, Percutaneous Approach (ICD-10-PCS; principal; 2020-10-13)
PROC: 3E0337Z Introduction of Electrolytic and Water Balance Substance into Peripheral Vein, Percutaneous Approach (ICD-10-PCS; 2020-10-13)
DX: K62.1 Rectal polyp (principal); R19.7 Diarrhea, unspecified
CPT/HCPCS: 36415; 80053; 82272; 83690; 84703; 85025; 87045; 87046; 87177; 87209; 87324; 87449; 99284-25; C9803; U0003; U0005

== ENCOUNTER 2022-11-12 23:53 | Inpatient (IN) | payer OTHER ==
[2022-11-13 01:16] LABS: EOS % 1.6 % (0-4.5); HEMATOCRIT 38.1 % (32.4-45.2); HEMOGLOBIN 12.8 GM/dL (10.7-15.3); LYMPH % 52.4 % (8-40); MCH 27.6 pg (25.7-33.7); MCHC 33.7 g/dl (32.0-36.0); MEAN CELL VOLUME 81.9 fl (80-96); MEAN PLT VOLUME 8.7 fl (7.5-11.1); MONO % 5.2 % (3.8-10.2); NEUT % 39.8 % (42.8-82.8); PLATELET COUNT 260 10^3/uL (134-434); RBC 4.65 M/mm3 (3.60-5.2); RDW 14.2 % (11.6-15.6); WHITE BLOOD COUNT 7.7 K/mm3 (4.0-10.0)
[2022-11-13 01:20] LABS: INR 1.04 (0.83-1.09); PROTHROMBIN TIME (PATIENT) 12.1 SEC (9.7-13.0)
[2022-11-13 01:37] LABS: POTASSIUM 4.1 mmol/L (3.5-5.1)
[2022-11-13 01:39] LABS: CALCIUM 8.6 mg/dL (8.5-10.1)
[2022-11-13 01:40] LABS: ALBUMIN 3.7 g/dl (3.4-5.0); BLOOD UREA NITROGEN 13.3 mg/dL (7-18)
[2022-11-13 01:43] LABS: CREATININE 0.8 mg/dL (0.55-1.3)
[2022-11-13 01:44] LABS: BILIRUBIN,TOTAL 0.4 mg/dL (0.2-1); TOT PROT 7.5 g/dl (6.4-8.2)
[2022-11-13] MEDS ORDERED: ACETAMINOPHEN 325 MG TABLET (FP) PO ONE (02:14)
[2022-11-13] MEDS ORDERED: ACETAMINOPHEN 325 MG TABLET (FP) ONE (02:25)
[2022-11-13] MEDS ORDERED: metoPROLOL SUCCINATE 25 MG TAB.SR.24H (FP) PO ONE ×3 (04:34→08:30)
[2022-11-13] MEDS ORDERED: METOPROLOL TARTRATE 5 MG/5 ML VIAL IVPUSH ONE (04:37)
[2022-11-13] MEDS ORDERED: KETOROLAC TROMETHAMINE 15 MG/ML VIAL IVPUSH ONE (04:38)
[2022-11-13] MEDS ORDERED: METOPROLOL TARTRATE 25 MG TABLET (FP) ONE (04:44)
[2022-11-13] MEDS ORDERED: METOPROLOL TARTRATE 5 MG/5 ML VIAL ONE (04:45)
[2022-11-13] MEDS: METOPROLOL TARTRATE 25 MG TABLET (FP) PO SCH ×2 (05:07→05:09)
[2022-11-13 06:16] VITALS: BMI 33.5
[2022-11-13 06:27] LABS: MAGNESIUM 1.7 mg/dL (1.8-2.4)
[2022-11-13] MEDS ORDERED: INSULIN SLIDING SCALE (NOVOLOG) 1 VIAL SQ SCH (07:00)
[2022-11-13 09:14] VITALS: BP 121/87; PULSE 95; RESP 18; TEMP 98
[2022-11-13] MEDS ORDERED: LOSARTAN POTASSIUM 50 MG TABLET PO SCH (10:00)
[2022-11-13] MEDS ORDERED: ENOXAPARIN NA (PORCINE) 40 MG/0.4 ML DISP.SYRIN SQ SCH (10:00)
[2022-11-13] MEDS ORDERED: METOPROLOL TARTRATE 25 MG TABLET (FP) PO SCH (17:00)
== END 2022-11-13 11:20 | disposition home or self-care (01) | DRG 201 ==
LOC: JER 23:53 → JERBED 11-13 04:03 → J4W 11-13 05:27
PROVIDERS: ADMIT Internal Medicine; ATTEND Internal Medicine
DX: I49.3 Ventricular premature depolarization (principal); I47.20 Ventricular tachycardia, unspecified; I10 Essential (primary) hypertension; E11.9 Type 2 diabetes mellitus without complications; F41.9 Anxiety disorder, unspecified; Z79.84 Long term (current) use of oral hypoglycemic drugs
CPT/HCPCS: 36415; 71046-TC-FY; 80053; 80061; 82962; 83735; 84439; 84443; 84484; 84703; 85025; 85610; 85730; 86900; 93005; 93010; 99285-25

== ENCOUNTER 2023-07-02 22:38 | Emergency (ER) | payer OTHER ==
[2023-07-02 22:43] VITALS: BP 146/86; PULSE 99; RESP 20; TEMP 98.3; BMI 34.9
[2023-07-02] MEDS ORDERED: ONDANSETRON 4 MG/2 ML VIAL ONE (23:31)
[2023-07-02] MEDS ORDERED: FAMOTIDINE 20 MG/50 ML IVPB 20 MG/50 ML MG IVPB ONE (23:31)
[2023-07-02] MEDS: ONDANSETRON 4 MG/2 ML VIAL IVPUSH ONE (23:40)
[2023-07-02] MEDS: FAMOTIDINE 20 MG/50 ML IVPB 20 MG/50 ML MG IVPB ONE (23:40)
[2023-07-02] MEDS: LACTATED RINGERS SOLUTION 1000 ML INFUS.BAG IV ONE (23:40)
[2023-07-02 23:56] LABS: BASO % 0.7 % (0-2.0); EOS % 1.5 % (0-4.5); HEMATOCRIT 37.3 % (32.4-45.2); HEMOGLOBIN 12.7 GM/dL (10.7-15.3); LYMPH % 30.2 % (8-40); MCH 27.5 pg (25.7-33.7); MCHC 34.1 g/dl (32.0-36.0); MEAN CELL VOLUME 80.8 fl (80-96); MEAN PLT VOLUME 8.4 fl (7.5-11.1); MONO % 6.1 % (3.8-10.2); NEUT % 61.5 % (42.8-82.8); PLATELET COUNT 311 10^3/uL (134-434); RBC 4.62 M/mm3 (3.60-5.2); RDW 14.5 % (11.6-15.6); WHITE BLOOD COUNT 8.8 K/mm3 (4.0-10.0)
[2023-07-03 00:04] LABS: POTASSIUM 3.7 mmol/L (3.5-5.1)
[2023-07-03 00:08] LABS: CALCIUM 9.1 mg/dL (8.5-10.1)
[2023-07-03 00:09] LABS: ALBUMIN 3.5 g/dl (3.4-5.0); BLOOD UREA NITROGEN 12.6 mg/dL (7-18); MAGNESIUM 1.6 mg/dL (1.8-2.4)
[2023-07-03 00:12] LABS: CREATININE 0.8 mg/dL (0.55-1.3)
[2023-07-03 00:13] LABS: BILIRUBIN,TOTAL 0.7 mg/dL (0.2-1); TOT PROT 6.9 g/dl (6.4-8.2)
[2023-07-03] MEDS ORDERED: ACETAMINOPHEN INJECTION 100 ML IVPB ONE (00:28)
[2023-07-03] MEDS: ACETAMINOPHEN 1000 MG/100 ML BAG IVPB ONE (00:38)
[2023-07-03] MEDS ORDERED: MAGNESIUM SULFATE IN WATER 2 GM/50 ML IVPB IVPB ONE (01:13)
[2023-07-03] MEDS: MAGNESIUM SULFATE IN WATER 2 GM/50 ML IVPB IVPB ONE (01:31)
== END 2023-07-03 02:22 | disposition home or self-care (01) ==
LOC: JER 22:38
PROC: 3E033GC Introduction of Other Therapeutic Substance into Peripheral Vein, Percutaneous Approach (ICD-10-PCS; principal; 2023-07-02)
PROC: 3E033GC Introduction of Other Therapeutic Substance into Peripheral Vein, Percutaneous Approach (ICD-10-PCS; 2023-07-02)
PROC: 3E033GC Introduction of Other Therapeutic Substance into Peripheral Vein, Percutaneous Approach (ICD-10-PCS; 2023-07-03)
PROC: 3E033NZ Introduction of Analgesics, Hypnotics, Sedatives into Peripheral Vein, Percutaneous Approach (ICD-10-PCS; 2023-07-03)
DX: K52.9 Noninfective gastroenteritis and colitis, unspecified (principal); R11.2 Nausea with vomiting, unspecified; R10.12 Left upper quadrant pain; R10.13 Epigastric pain; M54.2 Cervicalgia
CPT/HCPCS: 36415; 80053; 83690; 83735; 84703; 85025; 99284-25; J0131